=== PATIENT | female | born 1960 | race Caucasian/White ===

== ENCOUNTER 2020-06-11 18:05 | Inpatient (IN) | payer OTHER, SELFPAY ==
[~2020-06-11] VITALS: Ht 154.9 cm; Wt 98.9 kg
[2020-06-11 18:26] VITALS: BP_SYST 131
--- NOTE | 2020-06-11 18:30 | NUR ---
Patient to ER bed 7 to gown for evaluation. Side rails up.
--- NOTE | 2020-06-11 18:38 | NUR ---
ER Dr. Lofton at bedside examining patient.
--- NOTE | 2020-06-11 18:38 | NUR ---
James john in ED - 06/11/20 at 1849 by [facility] Gary Lofton at bedside examining patient.
[2020-06-11] MEDS ORDERED: ONDANSETRON HCL 4 MG/2 ML VIAL IM ONE (18:45)
[2020-06-11] MEDS ORDERED: MORPHINE 4 MG/ML INJ. SYRINGE IM ONE (18:45)
[2020-06-11 18:57] LABS: BILIRUBIN,URINE NEGATIVE (NEGATIVE); BLOOD, URINE 3+ (NEGATIVE); COLOR,URINE YELLOW (YELLOW); GLUCOSE,URINE NEGATIVE (NEGATIVE); KETONES,URINE NEGATIVE (NEGATIVE); LEUKOCYTE ESTERASE ,URINE NEGATIVE (NEGATIVE); NITRITE, URINE NEGATIVE (NEGATIVE); PH,URINE 5.5 (5.0-8.0); PROTEIN URINE 1+ (NEGATIVE)
[2020-06-11] MEDS ORDERED: ONDANSETRON HCL 4 MG/2 ML VIAL IVP ONE (19:00)
[2020-06-11] MEDS ORDERED: MORPHINE 4 MG/ML INJ. SYRINGE IVP ONE (19:00)
--- NOTE | 2020-06-11 19:10 | NUR ---
#20 gauge angiocatheter placed to L posterior hand. Use of asceptic technique. Opsite placed over site. Blood return noted. Blood for lab drawn from site. Flushed with 10 mL of normal saline. No evidence of infiltration noted. Patient tolerated well.
--- NOTE | 2020-06-11 19:10 | NUR ---
Patient placed on pulse oximeter and personnel monitor. Medicated with 4 mg Morphine IVP and 4 mg Zofran IVP. Patient tolerated well.
--- NOTE | 2020-06-11 19:18 | NUR ---
Patient AAO x 4 BIB self with complaints of generalized 7/10 abdominal pain and dysuria/oliguria x 3 days. Patient has h/o kidney stones and stent placement. Even chest rise and fall with respirations. Will continue to monitor.
--- NOTE | 2020-06-11 19:20 | NUR ---
Patient endorsed to RN May, who will carry on with care until disposition.
[2020-06-11 19:28] LABS: BASOPHILS # (AUTO) 0.1 K/uL (0.0-0.2); BASOPHILS % (AUTO) 0.4 % (0.0-2.0); EOSINOPHILS # (AUTO) 0.2 K/uL (0.0-0.4); EOSINOPHILS % (AUTO) 1.2 % (0.0-4.0); HEMATOCRIT 37.2 % (36-48); HEMOGLOBIN 12.5 g/dL (12.0-16.0); LYMPHOCYTES % (AUTO) 14.4 % (20.5-51.5); MEAN CORPUSCULAR HEMOGLOBIN 31 pg (27-31); MEAN CORPUSCULAR HGB CONC 33 % (32-36); MEAN CORPUSCULAR VOLUME 93 fL (79.0-98.0); MONOCYTES # (AUTO) 0.8 K/uL (0.0-1.0); MONOCYTES % (AUTO) 6.1 % (1.7-9.3); NEUTROPHILS # (AUTO) 10.8 K/uL (1.8-7.7); NEUTROPHILS % (AUTO) 77.9 % (40.0-70.0); PLATELET COUNT (AUTO) 252 K/uL (130-430); RED BLOOD CELL COUNT(AUTO) 4.02 MIL/uL (4.2-6.2); RED CELL DISTRIBUTION WIDTH 12.7 % (9.0-15.0); WHITE BLOOD COUNT (AUTO) 13.9 K/uL (4.8-10.8)
[2020-06-11 19:31] LABS: CLARITY/URINE SLIGHTLY HAZY (CLEAR)
--- NOTE | 2020-06-11 19:38 | NUR ---
Patient resting quietly. No acute distress noted. Vital signs within normal range.
[2020-06-11 19:45] LABS: BACTERIA,URINE MODERATE /HPF (None Seen); MUCUS,URINE 1+ /LPF (None Seen); RBC,URINE 20-50 /HPF (0-3)
--- NOTE | 2020-06-11 19:45 | NUR ---
ER Dr. Aleman at bedside examining patient.
[2020-06-11 19:46] LABS: COARSE GRANULAR CASTS,URINE 0-10 /LPF (None Seen)
[2020-06-11 19:57] LABS: PROTHROMBIN TIME 10.1 SECS (9.5-12.5)
[2020-06-11] MEDS ORDERED: NACL 0.9% 1,000 ML IV ONE (20:00)
[2020-06-11 20:13] LABS: CALCIUM 8.8 mg/dL (8.4-11.0); CREATININE 1.17 mg/dL (0.55-1.30); TOTAL BILIRUBIN 0.6 mg/dL (0.0-1.0)
[2020-06-11 20:14] LABS: ALBUMIN 2.6 g/dL (3.4-4.8)
--- NOTE | 2020-06-11 20:20 | NUR ---
Patient transported to radiology via wheelchair, accompanied by RT.
--- NOTE | 2020-06-11 20:30 | NUR ---
Patient came back from CT scan.
[2020-06-11] MEDS ORDERED: PIPERACILLIN/TAZO 3.375 GM in NS 50 ML IV ONE (21:15)
[2020-06-11] MEDS ORDERED: LOSA100T3 PO (21:17)
[2020-06-11] MEDS ORDERED: CARV25TA55 PO (21:17)
[2020-06-11] MEDS ORDERED: IBUP-1969 PO (21:18)
[2020-06-11] MEDS ORDERED: SENN-104 PO (21:19)
--- NOTE | 2020-06-11 21:19 | NUR ---
Medication reconciliation completed with information provided by patient. Any prior medication reconciliation on file was reviewed and corrected.
[2020-06-11] MEDS ORDERED: ONDANSETRON HCL 4 MG/2 ML VIAL IVP PRN (21:30)
[2020-06-11] MEDS ORDERED: MORPHINE 4 MG/ML INJ. SYRINGE IVP PRN (21:30)
[2020-06-11] MEDS ORDERED: PIPERACILLIN/TAZOBACTAM 3.375 GM/VIAL (ZOSYN) IV ONE (21:39)
--- NOTE | 2020-06-11 21:55 | NUR ---
Blood for labwork drawn from [facility]. Patient tolerated well.
--- NOTE | 2020-06-11 21:58 | NUR ---
Swabbed for MRSA and Covid-19 as order and sent to lab.
[2020-06-11] MEDS ORDERED: D5/0.45 NS 1,000 ML IV SCH (22:00)
--- NOTE | 2020-06-11 22:20 | NUR ---
X-ray at bedside.
[2020-06-11 22:26] LABS: PROTHROMBIN TIME 10.2 SECS (9.5-12.5)
--- NOTE | 2020-06-11 23:20 | NUR ---
Patient will be admitted to care of Dr. Rivera/. Admitted to M/S unit. Will go to room 108A. Belongings list completed. Complete and up to date summary report printed. SBAR report to be given at bedside with opportunity for questions.
--- NOTE | 2020-06-11 23:40 | NUR ---
ADMISSION: The patient, GERALDINE HERNANDEZ, 59 y/o, F admitted by TOMMY DUONG MD,with the diagnosis of Ruptured Appendicitis , to room 109 c .Primary RN is aware.
[2020-06-11 23:57] VITALS: BP_SYST 126
[2020-06-12] MEDS ORDERED: PIPERACILLIN/TAZO 3.375/DEX-IS 50 ML IV SCH
[2020-06-12] MEDS ORDERED: FLU VACC QS2020-21 (6 mos & up) 0.5 ML/SYRINGE I.M. PRN (00:15)
--- NOTE | 2020-06-12 00:32 | NUR ---
Assessment physical assessment complete
--- NOTE | 2020-06-12 00:48 | NUR ---
Paged Sid Cooley s/w [place]
[2020-06-12] MEDS: ONDANSETRON HCL 4 MG/2 ML VIAL IVP PRN ×2 (01:15→19:54)
[2020-06-12] MEDS: MORPHINE 4 MG/ML INJ. SYRINGE IVP PRN (01:16)
--- NOTE | 2020-06-12 01:16 | NUR ---
Morphine, Zofran Patient reporting pain, nausea and Morphine, Zofran given as ordered.
--- NOTE | 2020-06-12 01:42 | NUR ---
Second call for Sid Cooley s/w [place]
--- NOTE | 2020-06-12 02:20 | NUR ---
Third call for Sid Cooley to his pager
[2020-06-12] MEDS ORDERED: POTASSIUM CHLORIDE 40 MEQ in NS 250 ML IV ONE (02:30)
--- NOTE | 2020-06-12 02:31 | NUR ---
Dr. Harper s/w Dr. Shalom Harper and informed K+ level 3.0, and TORB medication order for K-rider 40 meq one.
[2020-06-12] MEDS: KCL 20 mEq in 100 mL (PREMIX) 100 ML IV SCH ×2 (03:03→07:25)
--- NOTE | 2020-06-12 03:11 | NUR ---
K-rider Bag 1 of 2 is infusing. Patient did not tolerated ordered rate of 50ml/hr and decreased to 40 ml/hr and she is tolerating. Will continue to monitor.
[2020-06-12] MEDS ORDERED: PIPERACILLIN/TAZOBACTAM 3.375 GM/VIAL (ZOSYN) IV ONE (03:18)
[2020-06-12] MEDS: PIPERACILLIN/TAZO 3.375 GM in NS 50 ML IV SCH ×3 (04:11→20:52)
--- NOTE | 2020-06-12 04:11 | NUR ---
Antibiotic, restroom Due antibiotic, Zosyn administered. Reviewed side effects and she verbalized understanding. She ambulated to restroom for void and returned to bed.
[2020-06-12 04:40] VITALS: BP_SYST 144
--- NOTE | 2020-06-12 04:40 | NUR ---
rounds, V/S V/S taken and stable
[2020-06-12 06:26] LABS: BASOPHILS % (AUTO) 0.2 % (0.0-2.0); EOSINOPHILS # (AUTO) 0.2 K/uL (0.0-0.4); EOSINOPHILS % (AUTO) 1.4 % (0.0-4.0); HEMATOCRIT 34.8 % (36-48); HEMOGLOBIN 11.7 g/dL (12.0-16.0); LYMPHOCYTES # (AUTO) 1.9 K/uL (1.0-5.5); LYMPHOCYTES % (AUTO) 15.5 % (20.5-51.5); MEAN CORPUSCULAR HEMOGLOBIN 31 pg (27-31); MEAN CORPUSCULAR HGB CONC 34 % (32-36); MEAN CORPUSCULAR VOLUME 93 fL (79.0-98.0); MONOCYTES # (AUTO) 0.7 K/uL (0.0-1.0); MONOCYTES % (AUTO) 6.2 % (1.7-9.3); NEUTROPHILS # (AUTO) 9.2 K/uL (1.8-7.7); NEUTROPHILS % (AUTO) 76.7 % (40.0-70.0); PLATELET COUNT (AUTO) 239 K/uL (130-430); RED BLOOD CELL COUNT(AUTO) 3.76 MIL/uL (4.2-6.2); RED CELL DISTRIBUTION WIDTH 12.7 % (9.0-15.0)
--- NOTE | 2020-06-12 06:58 | NUR ---
OR Nurse called and asked what meds patient received and she said hold off on giving pain meds/other meds now. When Dr. Anderson arrives, they will come for patient
[2020-06-12 07:04] LABS: ALBUMIN 2.3 g/dL (3.4-4.8); CALCIUM 8.2 mg/dL (8.4-11.0); CREATININE 1.46 mg/dL (0.55-1.30); POTASSIUM 3.5 mmol/L (3.5-5.1); TOTAL BILIRUBIN 0.6 mg/dL (0.0-1.0)
--- NOTE | 2020-06-12 07:40 | NUR ---
To OR Transported to OR . Seen by Dr. Aranda and Anesthesiologist at the bedside.
[2020-06-12] MEDS ORDERED: SUCCINYLCHOLINE CHLORIDE 20 MG/ML(QUELICIN) IVP ONE (08:55)
[2020-06-12] MEDS ORDERED: METOCLOPRAMIDE HCL 10 MG/2 ML VIAL IVP ONE (08:55)
[2020-06-12] MEDS ORDERED: GLYCOPYRROLATE 0.2 MG/ML VIAL IJ ONE (08:55)
[2020-06-12] MEDS ORDERED: NS 1000 ML IV.SOLN IV ONE (08:55)
[2020-06-12] MEDS ORDERED: MIDAZOLAM HCL 5 MG/5 ML VIAL IVP ONE (08:55)
[2020-06-12] MEDS ORDERED: ONDANSETRON HCL 4 MG/2 ML VIAL IVP ONE (08:55)
[2020-06-12] MEDS ORDERED: LIDOCAINE 1% 10 MG/ML, 20 ML MDV INJ ONE (08:55)
[2020-06-12] MEDS ORDERED: metroNIDAZOLE 500 mg/NS 100 mL IVPB IV ONE (08:55)
[2020-06-12] MEDS ORDERED: fentaNYL CITRATE/PF 100 MCG/2 ML AMP IVP ONE (08:55)
[2020-06-12] MEDS ORDERED: NEOSTIGMINE METHYLSULFATE 1 MG/ML, 10 ML VIAL IVP ONE (08:55)
[2020-06-12] MEDS ORDERED: ROCURONIUM BROMIDE 10 MG/ML (ZEMURON) IV ONE (08:55)
[2020-06-12] MEDS ORDERED: NS IRRIG SOLN 1000 ML IR ONE (08:55)
[2020-06-12] MEDS ORDERED: SEVOFLURANE 15 MIN GAS INH ONE (08:55)
[2020-06-12] MEDS ORDERED: PROPOFOL 200MG/ 20ML VIAL (DIPRIVAN) IV ONE (08:55)
[2020-06-12] MEDS ORDERED: KETOROLAC TROMETHAMINE 30 MG VIAL IVP PRN ×3 (09:45)
[2020-06-12] MEDS ORDERED: NACL 0.9% 1,000 ML IV SCH (09:45)
[2020-06-12] MEDS ORDERED: ONDANSETRON HCL 4 MG/2 ML VIAL IVP PRN (09:45)
[2020-06-12] MEDS ORDERED: METOCLOPRAMIDE HCL 10 MG/2 ML VIAL IVP PRN (09:45)
[2020-06-12] MEDS ORDERED: ACETAMINOPHEN 325 MG TABLET PO PRN (09:45)
[2020-06-12] MEDS ORDERED: HYDROmorphone 1 MG INJ. 1 MG/ML AMPUL IVP PRN ×2 (09:45)
[2020-06-12] MEDS ORDERED: NALOXONE HCL 0.4 MG/ML AMP (NARCAN) IVP PRN ×2 (09:45)
--- NOTE | 2020-06-12 10:50 | NUR ---
Post OP: Received from PACU s/p Lap Appendectomy. Two dressing noted plus the dressing over the Osorio Phelps insertion site. Output is bright red. Patient is drowsy but arousable. Connected o2 2 li/min via nasal cannula. Saturation is only in the 80's on room air. Will re evaluate once patient is more awake.
[2020-06-12 11:36] VITALS: BP_SYST 145
[2020-06-12] MEDS: metroNIDAZOLE 500 mg/NS 100 ML IV SCH ×2 (11:55→17:43)
[2020-06-12] MEDS: NACL 0.9% 1,000 ML IV SCH ×2 (11:55→23:09)
--- NOTE | 2020-06-12 15:00 | NUR ---
Rounds: patient is asleep. no disttress noted.
[2020-06-12 16:35] VITALS: BP_SYST 112
--- NOTE | 2020-06-12 18:00 | NUR ---
Rounds: Patient is having dinner. Encouraged fluid intake. Instructed patient to call for assist when to use the bathroom.
--- NOTE | 2020-06-12 19:30 | NUR ---
Opening note Received patient resting in bed, eyes closed, no distress, non labored breathing on 2L NC. IVF infusing via IV to Lt hand. Bed is locked in lowest position, turned bed alarm on and call light w/in reach.
[2020-06-12] MEDS: HYDROmorphone 1 MG INJ. 1 MG/ML AMPUL IVP PRN ×2 (19:58→23:06)
--- NOTE | 2020-06-12 19:58 | NUR ---
PAIN MED Patient reporting severe pain and requesting pain med and nausea med. Dilaudid and Zofran given as ordered, will continue to monitor.
[2020-06-12 20:00] VITALS: BP_SYST 140
--- NOTE | 2020-06-12 20:30 | NUR ---
ambulate; void Patient was assisted out of bed. She ambulated to restroom; voided 450ml mone urine. She returned to bed; SCD's on, call light w/in reach.
--- NOTE | 2020-06-12 23:08 | NUR ---
PAIN MED Patient reporting severe pain and requesting pain med. Dilaudid given as ordered, will continue to monitor.
[2020-06-13 00:08] VITALS: BP_SYST 140
[2020-06-13] MEDS: NACL 0.9% 1,000 ML IV SCH ×2 (01:41→13:10)
--- NOTE | 2020-06-13 01:43 | NUR ---
IVF hung new bag of normal saline IVF and infusing as ordered at 100 ml/hr; patient tolerating, no sign of infiltration noted.
[2020-06-13] MEDS: PIPERACILLIN/TAZO 3.375 GM in NS 50 ML IV SCH ×4 (03:58→20:47)
--- NOTE | 2020-06-13 03:58 | NUR ---
Antibiotic Due antibiotic, Zosyn administered. Infusing well, patient tolerating, no infiltration noted.
--- NOTE | 2020-06-13 04:20 | NUR ---
restroom Patient ambulated to restroom, voided 750 ml mone urine.
[2020-06-13 04:35] VITALS: BP_SYST 145
--- NOTE | 2020-06-13 04:35 | NUR ---
Fever Patient has temp of 100.9 temporal scan. Tylenol given as ordered; will continue to monitor.
--- NOTE | 2020-06-13 05:35 | NUR ---
fever recheck temp decreased to 99.0
[2020-06-13] MEDS: ONDANSETRON HCL 4 MG/2 ML VIAL IVP PRN ×2 (05:46→20:53)
[2020-06-13] MEDS: HYDROmorphone 1 MG INJ. 1 MG/ML AMPUL IVP PRN ×2 (05:47→16:22)
--- NOTE | 2020-06-13 05:50 | NUR ---
PAIN MED Patient reporting severe pain and requesting pain med and nausea med. Dilaudid and Zofran given as ordered, will continue to monitor.
[2020-06-13 06:31] LABS: BASOPHILS % (AUTO) 0.3 % (0.0-2.0); EOSINOPHILS # (AUTO) 0.2 K/uL (0.0-0.4); EOSINOPHILS % (AUTO) 1.5 % (0.0-4.0); HEMATOCRIT 32.7 % (36-48); HEMOGLOBIN 11.1 g/dL (12.0-16.0); LYMPHOCYTES # (AUTO) 1.6 K/uL (1.0-5.5); LYMPHOCYTES % (AUTO) 15.6 % (20.5-51.5); MEAN CORPUSCULAR HEMOGLOBIN 31 pg (27-31); MEAN CORPUSCULAR HGB CONC 34 % (32-36); MEAN CORPUSCULAR VOLUME 93 fL (79.0-98.0); MONOCYTES # (AUTO) 0.9 K/uL (0.0-1.0); MONOCYTES % (AUTO) 8.2 % (1.7-9.3); NEUTROPHILS # (AUTO) 7.8 K/uL (1.8-7.7); NEUTROPHILS % (AUTO) 74.4 % (40.0-70.0); PLATELET COUNT (AUTO) 258 K/uL (130-430); RED BLOOD CELL COUNT(AUTO) 3.53 MIL/uL (4.2-6.2); RED CELL DISTRIBUTION WIDTH 12.8 % (9.0-15.0); WHITE BLOOD COUNT (AUTO) 10.5 K/uL (4.8-10.8)
[2020-06-13 06:38] LABS: ALBUMIN 2.2 g/dL (3.4-4.8); CREATININE 1.61 mg/dL (0.55-1.30); POTASSIUM 3.3 mmol/L (3.5-5.1)
--- NOTE | 2020-06-13 06:55 | NUR ---
closing note Patient resting in bed, eyes closed, easy to arouse. She reports pain decreased and she is comfortable. Safety precautions maintained. Needs met throughout shift, will endorse care.
--- NOTE | 2020-06-13 08:10 | NUR ---
AM rounds: Patient is awake, oriented x4. Discussed with patient the importance of ambulation post surgery. Need reinforcement. Encouraged to continue using incentive spirometer. IV fluids of Normal saline is infusing at 100 cc/hr via left hand gauge 20 IV. Call light within reach.Bed alarm is on.
[2020-06-13 08:17] VITALS: BP_SYST 144
[2020-06-13] MEDS ORDERED: BISACODYL 10 MG/SUPPOSITORY RC ONE (09:00)
[2020-06-13] MEDS ORDERED: POTASSIUM CHLORIDE 20 MEQ TAB.PRT.SR PO ONE (09:00)
[2020-06-13] MEDS ORDERED: SODIUM PHOSPHATE,MONO-DIBASIC 133 ML ENEMA RC ONE (09:00)
--- NOTE | 2020-06-13 09:30 | NUR ---
MD rounds: Seen by Dr. Aranda. New orders received.
--- NOTE | 2020-06-13 09:39 | NUR ---
Nutrition Update Harjeet Scale 17 noted. Pt admitted for ruptured appendicitis. Diet: clear liquid BMI: 41.2 kg/m2 RD to follow per nutrition care standards.
--- NOTE | 2020-06-13 11:30 | NUR ---
Constipation: Patient claims that she has not had bowel movement for 5 days. Fleet enema and dulcolax suppository was given.
[2020-06-13 12:22] VITALS: BP_SYST 159
--- NOTE | 2020-06-13 13:16 | NUR ---
Dietitian Recommendations * Recommend continuing clear liquid diet (ONS Ensure Clear TID comes standard w/ clear liquid diet; provides 720 kcal/day, 24 gm protein/day) * Consider advance to soft (low fiber/bland) diet if/when medically appropriate LP, RD Please refer to Nutrition Assessment for details. Addendum: 06/13/20 at [address] Amended: Links added.
--- NOTE | 2020-06-13 13:50 | NUR ---
ASSUME CARE: RESUMED CARE AND RECEIVED REPORT FROM PALMA .PATIENT SLEEPING DURING ROUNDS.NOT IN ANY DISTRESS.
--- NOTE | 2020-06-13 15:00 | NUR ---
Iv Antibiotic: Due iv Zosyn given as scheduled. No adverse reaction noted.
--- NOTE | 2020-06-13 15:15 | NUR ---
IS: PATIENT RENDERED INCENTIVE SPIROMETRY UP TO 1500ML.INSTRUCTED TO DO EVERY HOUR WHILE AWAKE,8-10X.PT UNDERSTANDS TEACHINGS GIVEN.
[2020-06-13 16:00] VITALS: BP_SYST 151
--- NOTE | 2020-06-13 16:22 | NUR ---
Pain meds: c/o post op pain and due iv Dilaudid given per request,with no problem.
--- NOTE | 2020-06-13 18:28 | NUR ---
CLOSING NOTES: WITH SMALL DRESSING AT MIDABDOMEN AND LOWER QUADRANT AREA,INTACT. RIGHT TESSIE DRAINING TO SEROUS SANGUINOUS COLOR SECRETIONS TO LARGE AMOUNT. CALL LIGHT WITH IN REACH. BED LOCKED AT LOWEST POSITION. CONTINUE TO MONITOR.
--- NOTE | 2020-06-13 19:30 | NUR ---
OPENING NOTE: RECEIVED SBAR REPORT FROM DAY SHIFT RN. PATIENT IS BREATHING UNLABORED AND EVEN ON RA. REPORTS ABDOMEN PAIN ON THE SCALE 0-10. IVF IS INFUSING AT ORDERED RATE. NO SIGN OF INFILTRATION NOTED. PATIENT EDUCATED REGARDING BENEFITS OF USING SCD'S, HOWEVER PATIENT REFUSED TO PLACE THEM ON. PATIENT WAS ASSISTED TO BATHROOM BY PRIMARY NURSE. BED IS PLACED IN LOWEST POSITION, LOCKED, AND CALL LIGHT IS WITH PATIENT.
[2020-06-13 20:13] VITALS: BP_SYST 160
--- NOTE | 2020-06-13 20:55 | NUR ---
MEDICATION PASS: ZOSYN IVPB HUNG AT ORDERED RATE. MORPHINE GIVEN FOR ABDOMINAL PAIN. PATIENT EDUCATED REGARDING MEDICATIONS ACTIONS AND POTENTIAL SIDE EFFECTS. PATIENT VERBALIZED UNDERSTANDING. WILL REASSESS THE PAIN LEVEL. SAFETY AND FALL PRECAUTIONS ARE IN PLACE. CALL LIGHT IS WITH PATIENT.
[2020-06-13] MEDS: MORPHINE 4 MG/ML INJ. SYRINGE IVP PRN (20:58)
--- NOTE | 2020-06-13 22:04 | NUR ---
HIGH ALERT NOTE: Called Dr. KIRKPATRICK A back at [phone] identified within the medical roster to verify physician authenticity.
[2020-06-13] MEDS ORDERED: POTASSIUM CHLORIDE 40 MEQ in NS 250 ML IV ONE (22:15)
[2020-06-13] MEDS: KCL 20 mEq in 100 mL (PREMIX) 100 ML IV SCH (22:36)
--- NOTE | 2020-06-13 22:36 | NUR ---
POTASSIUM CL 20 MEQ HUNG. PATIENT REPORTS BURNING SENSATION AT IV SITE, LOWER THE RATE, PATIENT TOLERATED WELL. WILL CONTINUE TO MONITOR.
[2020-06-13] MEDS: cloNIDine HCL 0.1 MG TABLET PO PRN (22:45)
[2020-06-13] MEDS: HYDROcodone/ACETAMIN 5-325 MG TAB (NORCO/ VICODIN) PO PRN (23:32)
--- NOTE | 2020-06-13 23:32 | NUR ---
PATIENT GIVEN BLOOD PRESSURE MED FOR BP 152/74 . EDUCATED PATIENT REGARDING MED ACTIONS AND SIDE EFFECTS. PATIENT VERBALIZED UNDERSTANDING. SAFETY AND FALL PRECAUTIONS ARE IN PLACE. WILL MONITOR PATIENT.
[2020-06-14] VITALS: BP_SYST 144
--- NOTE | 2020-06-14 00:32 | NUR ---
RN ROUNDS: PATIENT ASSISTED TO BATHROOM WITH PRIMARY NURSE. TESSIE DRAIN EMPTIED. 50 ML SEROSANGUINEOUS DRAINAGE COLLECTED. PATIENT WALKED BACK TO BED SAFELY. BP IS WITHIN NORMAL LIMIT. PATIENT DENIES PAIN AT THE MOMENT. SAFETY AND FALL PRECAUTIONS MAINTAINED. CALL LIGHT IS WITH PATIENT. WILL MONITOR PATIENT.
[2020-06-14] MEDS: NACL 0.9% 1,000 ML IV SCH ×3 (01:33→21:27)
--- NOTE | 2020-06-14 02:35 | NUR ---
RN ROUNDS: PATIENT IS SLEEPING, BREATHING UNLABORED AND EVEN ON RA, NO S/S ACUTE DISTRESS NOTED. IVF IS INFUSING AT ORDERED RATE WITH NO SIGN OF INFILTRATION.SAFETY AND FALL PRECAUTIONS ARE IN PLACE. CALL LIGHT IS WITH PATIENT.
[2020-06-14] MEDS: KCL 20 mEq in 100 mL (PREMIX) 100 ML IV SCH (02:44)
[2020-06-14] MEDS: PIPERACILLIN/TAZO 3.375 GM in NS 50 ML IV SCH ×4 (02:53→21:27)
[2020-06-14] MEDS: HYDROcodone/ACETAMIN 5-325 MG TAB (NORCO/ VICODIN) PO PRN (03:48)
--- NOTE | 2020-06-14 04:30 | NUR ---
RN ROUNDS: PATIENT IS SLEEPING, BREATHING UNLABORED AND EVEN ON RA, NO S/S ACUTE DISTRESS NOTED. IVF IS INFUSING AT ORDERED RATE WITH NO SIGN OF INFILTRATION.SAFETY AND FALL PRECAUTIONS ARE IN PLACE. CALL LIGHT IS WITH PATIENT. WILL MONITOR PATIENT FOR NAY CHANGES.
--- NOTE | 2020-06-14 06:09 | NUR ---
CLOSING NOTE: PATIENT IS SLEEPING. RESPIRATION IS UNLABORED AND EVEN ON RA, NO S/S ACUTE DISTRESS NOTED. IVF IS INFUSING AT ORDERED RATE WITH NO SIGN OF INFILTRATION. SAFETY AND FALL PRECAUTIONS ARE IN PLACE. CALL LIGHT IS WITH PATIENT. WILL ENDORSE PATIENT CARE TO DAY SHIFT RN.
[2020-06-14 06:37] LABS: BASOPHILS % (AUTO) 0.5 % (0.0-2.0); EOSINOPHILS # (AUTO) 0.4 K/uL (0.0-0.4); EOSINOPHILS % (AUTO) 4.1 % (0.0-4.0); HEMOGLOBIN 10.4 g/dL (12.0-16.0); LYMPHOCYTES % (AUTO) 21.6 % (20.5-51.5); MEAN CORPUSCULAR HEMOGLOBIN 31 pg (27-31); MEAN CORPUSCULAR HGB CONC 34 % (32-36); MEAN CORPUSCULAR VOLUME 94 fL (79.0-98.0); MONOCYTES # (AUTO) 0.7 K/uL (0.0-1.0); MONOCYTES % (AUTO) 7.3 % (1.7-9.3); NEUTROPHILS # (AUTO) 6.2 K/uL (1.8-7.7); NEUTROPHILS % (AUTO) 66.5 % (40.0-70.0); PLATELET COUNT (AUTO) 249 K/uL (130-430); RED BLOOD CELL COUNT(AUTO) 3.31 MIL/uL (4.2-6.2); RED CELL DISTRIBUTION WIDTH 12.9 % (9.0-15.0); WHITE BLOOD COUNT (AUTO) 9.4 K/uL (4.8-10.8)
[2020-06-14] MEDS: ONDANSETRON HCL 4 MG/2 ML VIAL IVP PRN ×2 (06:57→12:59)
[2020-06-14] MEDS: MORPHINE 4 MG/ML INJ. SYRINGE IVP PRN ×2 (07:00→12:52)
[2020-06-14 07:06] LABS: CALCIUM 8.1 mg/dL (8.4-11.0); CREATININE 1.11 mg/dL (0.55-1.30); POTASSIUM 4.4 mmol/L (3.5-5.1); TOTAL BILIRUBIN 0.6 mg/dL (0.0-1.0)
[2020-06-14 08:00] VITALS: BP_SYST 142
[2020-06-14 11:27] VITALS: BP_SYST 147
[2020-06-14 15:36] VITALS: BP_SYST 159
[2020-06-14] MEDS ORDERED: COMMUNICATION ORDER XX ONE (16:30)
--- NOTE | 2020-06-14 17:24 | NUR ---
her surgeon called, dr Aranda, with new orders- patient will get MOTRIN 800mg po for pain, dilaudid, morphine discontinued. HL patient now. agreed with our plan she will get out of bed, and walk with staff. advanced her diet to reg. It is up to the attending to discharge her tonite or tomorrow , with TESSIE. Patient is to keep a log of how much TESSIE output daily. Taught her how to empty and how to close the TESSIE.
--- NOTE | 2020-06-14 18:16 | NUR ---
double checked with the patient before diet advanced to Reg. Passed gas, burped, no bm since arrival 06/11. Made aware she can have MOTRIN 800mg po, only for pain, all other narcotics discontinued by surgeon. agreed with the plan, Needs to ambulate during the night nurse, when finished dinner, will endorse.
[2020-06-14 19:20] VITALS: BP_SYST 155
--- NOTE | 2020-06-14 19:20 | NUR ---
INITIAL NOTES PATIENT IS STABLE AND LAYING IN BED. NO S/S OF RESPIRATORY DISTRESS NOTED. CALL LIGHT IN REACH. BED IS LOCKED, AND AT THE LOWEST POSITION. PATIENT EDUCATED ON BED ALARM, PT REFUSED. NO S/S OF RESPIRATORY DISTRESS NOTED. CALL LIGHT IN REACH. FALL, SAFETY, ASPIRATION, AND RESPIRATORY PRECAUTIONS WILL BE IN PLACE THROUGHOUT THE SHIFT. PLAN OF CARE IS DISCUSSED WITH PATIENT.
[2020-06-14] MEDS: IBUPROFEN 800 MG TABLET PO PRN (21:24)
--- NOTE | 2020-06-14 21:24 | NUR ---
PATIENT AMBULATED TO THE RESTROOM AT THIS TIME. PATIENT STATES SHE FEELS PAIN. PRN MEDICATION WILL BE GIVEN. NO S/S OF RESPIRATORY DISTRESS NOTED. PATIENT REPOSITION BACK IN BED. CALL LIGHT IN REACH.
--- NOTE | 2020-06-14 23:24 | NUR ---
PATIENT IS STABLE AND SLEEPING IN BED. NO S/S OF RESPIRATORY DISTRESS NOTED. CALL LIGHT IN REACH.
[2020-06-15 00:07] VITALS: BP_SYST 143; BP_SYST 153; BP_SYST 156
--- NOTE | 2020-06-15 01:24 | NUR ---
PATIENT IS STABLE AND SLEEPING IN BED. NO S/S OF RESPIRATORY DISTRESS NOTED. CALL LIGHT IN REACH.
[2020-06-15] MEDS: PIPERACILLIN/TAZO 3.375 GM in NS 50 ML IV SCH ×3 (02:03→13:43)
--- NOTE | 2020-06-15 02:32 | NUR ---
PATIENT AMBULATED TO THE RESTROOM AT THIS TIME. PATIENT TOLERATED WELL. NO S/S OF RESPIRATORY DISTRESS NOTED. PATIENT REPOSITION TO BED FOR COMFORT. CALL LIGHT IN REACH.
--- NOTE | 2020-06-15 04:54 | NUR ---
PATIENT IS STABLE AND SLEEPING IN BED. NO S/S OF RESPIRATORY DISTRESS NOTED. CALL LIGHT IN REACH.
--- NOTE | 2020-06-15 06:14 | NUR ---
CLOSING NOTES PATIENT IS STABLE AND LAYING IN BED. NO S/S OF RESPIRATORY DISTRESS NOTED. CALL LIGHT IN REACH. BED IS LOCKED, AND AT THE LOWEST POSITION. FALL, SAFETY, ASPIRATION, AND RESPIRATORY PRECAUTIONS HAD BEEN IN PLACE THROUGHOUT THE SHIFT. WILL CONTINUE TO MONITOR UNTIL SBAR REPORT IS ENDORSED TO AM NURSE.
[2020-06-15 08:00] VITALS: BP_SYST 146
--- NOTE | 2020-06-15 08:15 | NUR ---
Opening Notes Patient is awake, alert and oriented x4. No resp distress. Breathing is even and unlabored. Pt is c/o 8/10 abdominal pain, requesting pain medication. Reports the pain is "constant." IV site on left hand, 20 gauge intact at this time, flushing well. Pt is ambulatory, steady gait. Pt reports not having a BM for a couple days now. Pt is noted with a cough. Some phelgm, thick, white, small amount. All needs met at this time. Call light within reach. Bed in lowest position, locked. Will continue to monitor.
[2020-06-15] MEDS: NACL 0.9% 1,000 ML IV SCH (08:25)
[2020-06-15] MEDS: HYDROcodone/ACETAMIN 5-325 MG TAB (NORCO/ VICODIN) PO PRN ×2 (08:25→13:36)
--- NOTE | 2020-06-15 08:25 | NUR ---
[place] 5-325 mg Patient is requesting pain meds for abdominal pain, 05/02. Administered [place] 5-325 mg PO, tolerated well. Will continue to monitor.
[2020-06-15 10:18] VITALS: BP_SYST 143
[2020-06-15] MEDS: IBUPROFEN 800 MG TABLET PO PRN (10:26)
--- NOTE | 2020-06-15 10:30 | NUR ---
Notes/Motrin 800 mg/TESSIE Drain out Nurse s/w Dr. Jaxon MD will remove TESSIE drain, requesting for pt to receive Motrin 800 mg prior to the procedure. Administered Motrin 800 mg, tolerated well. Dr. Coates came in and removed TESSIE drain. Pt reported some discomfort. All needs met at this time. Will continue to monitor.
[2020-06-15 11:35] VITALS: BP_SYST 164
--- NOTE | 2020-06-15 12:00 | NUR ---
Notes Patient is sleeping at this time. No resp distress noted. Breathing is even and unlabored. Denies any pain at this time. All needs met at this time. Will continue to monitor.
[2020-06-15] MEDS ORDERED: LEVO500T89 PO (13:05)
[2020-06-15] MEDS ORDERED: METR500T PO (13:05)
[2020-06-15 13:08] VITALS: BP_SYST 155
[2020-06-15] MEDS: cloNIDine HCL 0.1 MG TABLET PO PRN (13:37)
--- NOTE | 2020-06-15 14:20 | NUR ---
Notes Patient is laying in bed at this time and talking on her cellphone. Hung IV ATB, infusing at this time. Administered [place] 5-325 mg, PO for gen body pain, 04/01, tolerated well. No resp distress noted. Breathing is even and unlabored. Will continue to monitor.
[2020-06-15 15:45] VITALS: BP_SYST 151
--- NOTE | 2020-06-15 16:00 | NUR ---
Notes Patient is laying in bed, resting and preparing for discharge. No resp distress noted. Breathing is even and unlabored. Pt denies any pain at this time. No needs at this time. Will continue to monitor.
--- NOTE | 2020-06-15 17:00 | NUR ---
D/C Patient Patient given medication reconciliation form and D/C instructions. Exit Care provided. Patient verbalized understanding. MD discussed with patient the results and treatment provided. Ambulatory with steady gait for discharge to home. Patient in stable condition, ID band removed. IV catheter removed, intact and dressing applied, no active bleeding. Rx of given. Patient educated on pain management. All belongings sent with patient.
== END 2020-06-15 17:13 | disposition home or self-care (01) | DRG 853 ==
LOC: SED 18:05 → SMU 21:47
PROVIDERS: ADMIT Internal Medicine Hospice and Palliative Medicine; ATTEND Internal Medicine Hospice and Palliative Medicine
PROC: 0DTJ0ZZ Resection of Appendix, Open Approach (ICD-10-PCS; principal; 2020-06-12 07:30)
DX: A41.9 Sepsis, unspecified organism (principal); K35.33 Acute appendicitis with perforation, localized peritonitis, and gangrene, with abscess; N17.9 Acute kidney failure, unspecified; I10 Essential (primary) hypertension; Z20.828 Contact with and (suspected) exposure to other viral communicable diseases
CPT/HCPCS: 36415; 71045; 80053; 81000-TC; 83690-TC; 84484; 84702-TC; 85025; 85610-TC; 85730-TC; 86886; 86900; 86901; 87070; 87070-TC; 87075-TC; 87081; 87086; 88304; 93005; 94010; 96365; 96375; 99285; C1727; J0330; J1170; J2001; J2250; J2270; J2405; J2543; J2704; J2710; J2765; J3010; J3480; J3490; J7030

== ENCOUNTER 2023-11-01 10:58 | Day surgery (SDC) | payer BC ==
[~2023-11-01] VITALS: Ht 154.9 cm; Wt 96.2 kg
[~2023-11-01 10:58] MED LIST: CARV25TA55 PO; CEFAZOLIN SOD 2 GM in D5W 50 ML IV ONE; IBUP-1969 PO; LEVO-62 PO; LOSA-415 PO; METR500T PO; SENN-295 PO
[2023-11-01 13:06] VITALS: O2SAT 96
[2023-11-01] MEDS ORDERED: ACETAMINOPHEN I.V. 1000 MG 100 ML IV ONE (13:08)
[2023-11-01] MEDS ORDERED: fentaNYL CITRATE/PF 100 MCG/2 ML AMP ONE (13:08)
[2023-11-01] MEDS ORDERED: PROPOFOL 200MG/ 20ML VIAL (DIPRIVAN) IV ONE ×2 (14:11→15:30)
[2023-11-01] MEDS ORDERED: ONDANSETRON HCL 4 MG/2 ML VIAL ONE (14:11)
[2023-11-01] MEDS ORDERED: WATER FOR IRRIGATION,STERILE 1,000 ML IRRIG.SOLN IR ONE (14:11)
[2023-11-01] MEDS ORDERED: NS IRRIG SOLN 1000 ML IR ONE ×2 (14:11→15:30)
[2023-11-01] MEDS ORDERED: PHENYLEPHRINE HCL 10 MG/ML VIAL (NEOSYNEPHRINE) ONE (14:11)
[2023-11-01] MEDS ORDERED: DEXAMETHASONE SOD PHOSPHATE 4 MG/ML VIAL ONE (14:11)
[2023-11-01] MEDS ORDERED: cefTRIAXone 1 GM VIAL ONE (14:11)
[2023-11-01] MEDS ORDERED: SUCCINYLCHOLINE CHLORIDE 20 MG/ML(QUELICIN) ONE ×2 (14:11→15:30)
[2023-11-01] MEDS ORDERED: ROCURONIUM BROMIDE 10 MG/ML (ZEMURON) ONE (14:11)
[2023-11-01] MEDS ORDERED: SEVOFLURANE 15 MIN GAS INH ONE ×2 (14:11→15:30)
[2023-11-01] MEDS ORDERED: NALOXONE HCL 0.4 MG/ML AMP (NARCAN) IVP PRN (15:15)
[2023-11-01] MEDS ORDERED: hydrALAZINE HCL 20 MG/ML VIAL IV PRN (15:15)
[2023-11-01] MEDS ORDERED: KETOROLAC TROMETHAMINE 30 MG VIAL IM PRN (15:15)
[2023-11-01] MEDS ORDERED: HYDROmorphone 1 MG/ML INJ. CARTRIDGE IVP PRN ×2 (15:15)
[2023-11-01] MEDS ORDERED: ONDANSETRON HCL 4 MG/2 ML VIAL IVP PRN (15:15)
[2023-11-01] MEDS ORDERED: ePHEDrine sulfate 50 MG/ML VIAL ONE (15:30)
[2023-11-01] MEDS ORDERED: HEPARIN SODIUM,PORCINE/NS/PF 1,000 UNITS/500 ML BAG IV ONE (15:30)
[2023-11-01] MEDS ORDERED: NS 50 ML BAG IV ONE (15:30)
[2023-11-01] MEDS ORDERED: LIDOCAINE/EPI 1% 1:100000 20 ML VIAL ONE (15:30)
[2023-11-01] MEDS ORDERED: D5/0.45 NS 1,000 ML IV SCH (15:45)
[2023-11-01] MEDS ORDERED: HYDROcodone/ACETAMIN 5-325 MG TAB (NORCO/ VICODIN) PO PRN ×2 (15:45)
[2023-11-01 17:59] VITALS: BP_SYST 133; PULSE 61; RESP 22; TEMP 97.5
== END 2023-11-01 17:52 | disposition home or self-care (01) ==
LOC: SDS 10:58 → SMU 10:59 → SDS 17:52
PROVIDERS: ATTEND Colon & Rectal Surgery
DX: K43.0 Incisional hernia with obstruction, without gangrene (principal); I10 Essential (primary) hypertension; J45.909 Unspecified asthma, uncomplicated; G89.29 Other chronic pain; F41.9 Anxiety disorder, unspecified; E66.01 Morbid (severe) obesity due to excess calories; Z68.41 Body mass index [BMI] 40.0-44.9, adult; Z79.899 Other long term (current) drug therapy; Z98.890 Other specified postprocedural states; Z87.891 Personal history of nicotine dependence; Z85.3 Personal history of malignant neoplasm of breast; Z82.49 Family history of ischemic heart disease and other diseases of the circulatory system
CPT/HCPCS: 87081; 49594; 88302; J0690; J0696; J1100; J2405; J2370; J2704; J0330; J3010; J7060; C1781; J0131; J1644

== ENCOUNTER 2023-11-03 16:49 | Inpatient (IN) | payer BC ==
[~2023-11-03] VITALS: Ht 154.9 cm; Wt 97.1 kg
[~2023-11-03 16:49] MED LIST changes: -CEFAZOLIN SOD 2 GM in D5W 50 ML IV ONE
[2023-11-03 16:50] VITALS: BP_SYST 131; PULSE 69; RESP 19; TEMP 97.8; O2SAT 95
[2023-11-03 17:29] LABS: BASOPHILS # (AUTO) 0.1 K/uL (0.0-0.2); BASOPHILS % (AUTO) 0.6 % (0.0-2.0); EOSINOPHILS # (AUTO) 0.1 K/uL (0.0-0.4); EOSINOPHILS % (AUTO) 0.7 % (0.0-4.0); HEMATOCRIT 37.8 % (36-48); LYMPHOCYTES # (AUTO) 2.4 K/uL (1.0-5.5); LYMPHOCYTES % (AUTO) 16.1 % (20.5-51.5); MEAN CORPUSCULAR HEMOGLOBIN 32 pg (27-31); MEAN CORPUSCULAR HGB CONC 34 % (32-36); MEAN CORPUSCULAR VOLUME 93 fL (79.0-98.0); MONOCYTES % (AUTO) 6.6 % (1.7-9.3); NEUTROPHILS # (AUTO) 11.4 K/uL (1.8-7.7); PLATELET COUNT (AUTO) 221 K/uL (130-430); RED BLOOD CELL COUNT(AUTO) 4.07 MIL/uL (4.2-6.2); RED CELL DISTRIBUTION WIDTH 12.3 % (9.0-15.0)
[2023-11-03 17:45] LABS: CALCIUM 8.5 mg/dL (8.4-11.0); CREATININE 1.26 mg/dL (0.55-1.30); POTASSIUM 3.4 mmol/L (3.5-5.1)
[2023-11-03 17:50] LABS: ALBUMIN 2.9 g/dL (3.4-4.8); BILIRUBIN,DIRECT 0.2 mg/dL (0.0-0.3); TOTAL BILIRUBIN 0.8 mg/dL (0.0-1.0); TOTAL PROTEIN, SERUM 6.9 g/dL (6.4-8.3)
[2023-11-03] MEDS ORDERED: PIPERACILLIN/TAZOBACTAM 4.5 GM/VIAL (ZOSYN) IV ONE (19:25)
[2023-11-03] MEDS ORDERED: PIPERACILLIN/TAZO 4.5 GM in D5W 100 ML IV SCH (19:30)
[2023-11-03] MEDS: PIPERACILLIN/TAZO 4.5 GM in D5W 100 ML IV ONE (19:38)
[2023-11-03] MEDS: ACETAMINOPHEN 650 MG SUPP.RECT RC ONE (19:39)
[2023-11-03] MEDS ORDERED: ONDANSETRON HCL 4 MG/2 ML VIAL IVP PRN (20:15)
[2023-11-03] MEDS ORDERED: ACETAMINOPHEN 325 MG TABLET PO PRN ×2 (20:15→20:30)
[2023-11-03] MEDS: NACL 0.9% 1,000 ML IV SCH (21:11)
[2023-11-03] MEDS: MORPHINE 2 MG/ML INJ. SYRINGE IVP PRN (21:21)
[2023-11-03 22:46] VITALS: BP_SYST 105; PULSE 57; RESP 18; TEMP 97.1; O2SAT 97
[2023-11-03 23:25] VITALS: BP_SYST 105; PULSE 57; RESP 18; TEMP 97.1; O2SAT 97
[2023-11-03 23:30] VITALS: O2SAT 97
[2023-11-03 23:39] VITALS: BP_SYST 105; PULSE 57; RESP 20; TEMP 97.1; O2SAT 97
[2023-11-04] VITALS: RESP 18
[2023-11-04] MEDS: PIPERACILLIN/TAZO 3.375/DEX-IS 50 ML IV SCH (00:06)
[2023-11-04] MEDS: PIPERACILLIN/TAZOBACTAM 3.375 GM/VIAL (ZOSYN) IV ONE (00:21)
[2023-11-04 04:00] VITALS: PULSE 57; RESP 18
[2023-11-04 06:28] LABS: BASOPHILS % (AUTO) 0.4 % (0.0-2.0); EOSINOPHILS # (AUTO) 0.1 K/uL (0.0-0.4); EOSINOPHILS % (AUTO) 1.4 % (0.0-4.0); HEMATOCRIT 38.7 % (36-48); HEMOGLOBIN 13.2 g/dL (12.0-16.0); LYMPHOCYTES # (AUTO) 2.1 K/uL (1.0-5.5); LYMPHOCYTES % (AUTO) 20.2 % (20.5-51.5); MEAN CORPUSCULAR HEMOGLOBIN 32 pg (27-31); MEAN CORPUSCULAR HGB CONC 34 % (32-36); MEAN CORPUSCULAR VOLUME 94 fL (79.0-98.0); MONOCYTES # (AUTO) 0.8 K/uL (0.0-1.0); MONOCYTES % (AUTO) 7.4 % (1.7-9.3); NEUTROPHILS # (AUTO) 7.4 K/uL (1.8-7.7); NEUTROPHILS % (AUTO) 70.6 % (40.0-70.0); PLATELET COUNT (AUTO) 176 K/uL (130-430); RED BLOOD CELL COUNT(AUTO) 4.14 MIL/uL (4.2-6.2); RED CELL DISTRIBUTION WIDTH 12.6 % (9.0-15.0); WHITE BLOOD COUNT (AUTO) 10.5 K/uL (4.8-10.8)
[2023-11-04 06:47] LABS: ALBUMIN 2.6 g/dL (3.4-4.8); CALCIUM 8.4 mg/dL (8.4-11.0); CREATININE 0.99 mg/dL (0.55-1.30); POTASSIUM 3.4 mmol/L (3.5-5.1); TOTAL BILIRUBIN 0.8 mg/dL (0.0-1.0); TOTAL PROTEIN, SERUM 6.7 g/dL (6.4-8.3)
[2023-11-04 08:00] VITALS: BP_SYST 147; PULSE 68; RESP 18; TEMP 99.6; O2SAT 96; O2SAT 99
[2023-11-04 11:25] VITALS: BP_SYST 119; PULSE 65; RESP 16; TEMP 96.8; O2SAT 95
[2023-11-04] MEDS: CARVEDILOL 25 MG TABLET (COREG) PO SCH (11:31)
[2023-11-04] MEDS: LOSARTAN POTASSIUM 50 MG TABLET (COZAAR) PO SCH (11:32)
[2023-11-04] MEDS: HYDROcodone/ACETAMIN 5-325 MG TAB (NORCO/ VICODIN) PO PRN (11:33)
[2023-11-04] MEDS ORDERED: ACET-2634 PO (14:24)
[2023-11-04] MEDS ORDERED: LEVO-62 PO (14:24)
[2023-11-04] MEDS ORDERED: POLY17PO4 PO (14:38)
[2023-11-04 15:16] VITALS: BP_SYST 119; PULSE 65; RESP 16; TEMP 98; O2SAT 96
[2023-11-04] MEDS: HYDROcodone/ACETAMIN 10-325 MG TAB PO PRN (15:24)
[2023-11-04] MEDS: SODIUM PHOSPHATE,MONO-DIBASIC 133 ML ENEMA RC ONE (15:43)
[2023-11-04 16:08] VITALS: BP_SYST 105; PULSE 61; RESP 17; TEMP 97.6; O2SAT 94
== END 2023-11-04 18:03 | disposition home or self-care (01) | DRG 920 ==
LOC: SED 16:49 → STU 20:12
PROVIDERS: ADMIT Family Medicine; ATTEND Family Medicine
DX: L76.34 Postprocedural seroma of skin and subcutaneous tissue following other procedure (principal); E44.1 Mild protein-calorie malnutrition; Z68.41 Body mass index [BMI] 40.0-44.9, adult; J06.9 Acute upper respiratory infection, unspecified; D72.829 Elevated white blood cell count, unspecified; I10 Essential (primary) hypertension; E87.6 Hypokalemia; Y83.8 Other surgical procedures as the cause of abnormal reaction of the patient, or of later complication, without mention of misadventure at the time of the procedure; K76.0 Fatty (change of) liver, not elsewhere classified; Z88.1 Allergy status to other antibiotic agents; Z88.8 Allergy status to other drugs, medicaments and biological substances
CPT/HCPCS: 36415; 80048; 80053; 80076; 83605; 85025; 87040; 87081; 96365; 96375; 99285; G0378; J2270; J2543